=== PATIENT | male | born 2000 | race Caucasian/White ===

== ENCOUNTER 2019-01-10 22:39 | Emergency (ER) | payer OTHER ==
[~2019-01-10] VITALS: Ht 180.3 cm; Wt 56.7 kg
[2019-01-10 22:55] LABS: ABSOLUTE EOSINOPHILS 0.1 thou/uL (0.0-0.7); ABSOLUTE LYMPHOCYTES 2.1 thou/uL (0.8-5.3); ABSOLUTE MONOCYTES 0.5 thou/uL (0.0-1.2); ABSOLUTE NEUTROPHILS 2.9 thou/uL (1.6-8.1); BASOPHILS 0.8 %; EOSINOPHILS 1.1 %; HEMATOCRIT 43.6 % (42.0-52.0); LYMPHOCYTES 38.2 %; MCH 28.8 pg (26.0-34.0); MCHC 34.5 g/dL (28.0-37.0); MCV 83.6 fL (80.0-100.0); MONOCYTES 8.3 %; MPV 8.7 fl. (7.2-11.1); NUCLEATED RBCS 0 /100WBC; PLATELET COUNT* 188 thou/uL (150-400); POLYS 51.6 %; RBC 5.21 mil/uL (4.50-6.00); RDW-CV 12.8 % (10.5-14.5); WBC 5.6 thou/uL (4.0-11.0)
[2019-01-10] MEDS ORDERED: ATIVAN0.5 MG PO ×2 (22:55→23:17)
[2019-01-10 23:04] LABS: ANION GAP 13 mmol/L (7-16); BUN 9 mg/dL (7-18); CALCIUM 9.5 mg/dL (8.5-10.1); CHLORIDE 104 mmol/L (98-107); CO2 28 mmol/L (21-32); CREATININE 1.1 mg/dL (0.6-1.3); GLUCOSE 112 mg/dL (70-99); POTASSIUM 3.6 mmol/L (3.5-5.1); SODIUM 145 mmol/L (136-145)
[2019-01-10 23:11] LABS: APTT 26.9 Seconds (25.0-31.3); INR 1.1; PROTIME 11.1 Seconds (9.20-11.50)
[2019-01-10 23:20] LABS: ALBUMIN 4.7 g/dL (3.4-5.0); ALKALINE PHOSPHATASE 102 U/L (46-116); CK-MB MASS < 0.5 ng/mL (<0.5-3.6); LIPASE 113 U/L (73-393); MAGNESIUM 1.9 mg/dL (1.8-2.4); NT-PRO BRAIN NAT PEPTIDE 36 pg/mL (<300); SGOT 35 U/L (15-37); SGPT 23 U/L (30-65); TOTAL BILIRUBIN 1.7 mg/dL (<0.1-1.0); TOTAL PROTEIN 7.8 g/dL (6.4-8.2); TROPONIN-I LEVEL <0.06 ng/mL (<0.06)
[2019-01-11 00:02] VITALS: BP 125/82
--- NOTE | 2019-01-12 10:50 | EKG ---
[place] [address] ELECTROCARDIOGRAM REPORT Name: MATTHEW GLASGOW Room: [place] [facility]#: [id number] Admission: 01/10/19 Attend Phys: Discharge: 01/11/19 Date of : 89 Report #: [id number] THIS REPORT FOR: //name// [facility] ED Test Date: 2019-01-10 Test Time: 22:43:37 Pat Name: MATTHEW GLASGOW Department: Room: Gender: M [employer] Operator: LISA : 2000 Requested By: Mikey Cantu Order Number: [id number] MD: Edvin Belcher Measurements Intervals [place] Rate: 84 P: 70 AR: 106 QRS: 77 QRSD: 106 T: 71 QT: 345 QTc: 408 Interpretive Statements Sinus rhythm Short AR interval RSR' in V1 or V2, right VCD or RVH Probable LVH with secondary repol abnrm No previous ECG available for comparison Electronically Signed On 01-12-2019 10:50:20 CDT by Edvin Belcher [email or web address] <ELECTRONICALLY SIGNED> By: Edvin Belcher MD, [facility] 01/12/19 1050 [id number] 224 Edvin Belcher MD, [facility] /EPI
== END 2019-01-11 00:04 | disposition home or self-care (01) ==
LOC: M.ERS 22:39
PROVIDERS: Family Medicine
DX: F41.0 Panic disorder [episodic paroxysmal anxiety] (principal)